=== PATIENT | female | born 1975 | race Caucasian/White ===

== ENCOUNTER 2025-03-25 07:36 | Outpatient (OUT) | payer OTHER, SELFPAY ==
--- OUTSIDE RECORDS SUMMARY | 2025-03-25 07:39 | XMS_ITS | Clinical Summary ---
Author Organization [facility] Address [address] [place] [address] Phone Care Team Providers Care Hull Molder Name Role Phone Unavailable Primary Care Provider Unavailabl e Social History Tobacco UseTypesPacks/DayYears UsedDateSmoking Tobacco: Never Assessed CommentsUnknownSex and Gender InformationValueDate RecordedSex Assigned at Not on fileLegal EgfDouxqp21/25/2022 11:32 PM ESTGender IdentityNot on file Sexual OrientationNot on file Plan of Treatment Not on file
--- OUTSIDE RECORDS SUMMARY | 2025-03-25 07:39 | XMS_ITS | Clinical Summary ---
Author Organization [facility] Address [address] [place] [address] Care Team Providers Care Head Of Drama Name Role Phone Korin Otto MD Primary Care Provider [phone] Sheila Qiu PA Unavailable [phone] Allergies Active AllergyReactionsCriticalityNoted DateCommentsAmoxicillin-Pot Clavulanate Ykerjbaom17/17/0399Ngmmavbmyf72/15/2024 Other Reaction(s): nausea and vomiting Ayirkgsjhm33/15/2024 Other Reaction(s): nausea and vomiting Medications MedicationSigDispense QuantityRefillsLast FilledStart DateEnd DateStatus Multiple Vitamin (MULTIVITAMINS PO) Take 1 tablet by mouth DailyActive fexofenadine-pseudoephedrine ER (Emily-D 24) 180-240 MG 24 hr tablet Indications:Acute non-recurrent maxillary sinusitisTake 1 tablet by mouth Daily Do not crush, chew, or split. 30 tablet 1114Active nicotine (Nicoderm CQ) 21 MG/24HR patch Indications:SmokerPlace 1 patch over 24 hours on the skin 1 (one) time each day at the same time 42 patch 5Active fluticasone (Flonase) 50 MCG/ACT nasal spray Indications:Acute non-recurrent frontal sinusitisADMINISTER 1-2 SPRAYS INTO EACH NOSTRIL DAILY AFTER USE, CLEAN TIP AND REPLACE CAP 16 mL 5Active Active Problems ProblemNoted DateDiagnosed CmfeZzxlkw10/15/2024 Resolved Problems ProblemNoted DateDiagnosed DateResolved DateAcute non-recurrent maxillary mnngkqvib78/ Assessment & Plan (03/03/2024 9:10 AM EDT): Add Probiotic to help replenish the good bacteria that are destroyed by the Antibiotics Florastor Florajen Align or try Activia in Yogurt Probiotics reduce the risk of antibiotic induced diarrhea Nsmvmkcz12 Family History Medical HistoryRelationNameCommentsHeart diseaseFatherDiabetesMotherHeart attack MotherRelationNameStatusCommentsFatherMother Social History Tobacco UseTypesPacks/DayYears UsedDateSmoking Tobacco: Every DayCigarettes Smokeless Tobacco: Never Comments:Smoking since 19 y/ o Alcohol UseStandard Drinks/WeekCommentsYes0 (1 standard drink = 0.6 oz pure alcohol)AUDIT-CAnswerDate RecordedQ1: How often do you have a drink containing alcohol?Monthly or less09/09/2023Q2: How many drinks containing alcohol do you have on a typical day when you are drinking?1 or Q3: How often do you have six or more drinks on one occasion?Never09/09/2023HQ-2AnswerDate Recorded Patient Health Questionnaire-2 Hrkxh642CommentsUnknownSex and Gender InformationValueDate RecordedSex Assigned at BirthNot on fileLegal Sex Tmqqec5908/08/2022 7:26 PM EDTGender IdentityNot on fileSexual OrientationNot on file Last Filed Vital Signs Vital SignReadingTime TakenCommentsBlood Eevedzxk436/8405 11:39 AM EDT Ggkwb917110/20/2024 11:39 AM HXXIvnwsazskht02.8 ??C (98.2 ??F)10/20/2024 11:39 AM EDTRespiratory Edaq971310/20/2024 11:39 AM EDTOxygen Maepoazfmm98%10/20/2024 11:39 AM EDTInhaled Oxygen Concentration--Vuuhuh959 kg (245 lb 3.2 oz)10/20/2024 11:39 AM KOBYdnbvu640.9 cm (6')10/20/2024 11:39 AM EDTBody Mass Index33.26010/20/2024 11:39 AM EDT Plan of Treatment Health MaintenanceDue DateLast DoneCommentsCT Cdllrhegffrj1977Colonoscopy 1977Colorectal Cancer Hoeiuyukj1977FIT-DNA1977FIT1977 FOBT1977 3748Kpcobtjiykebw1977Pap Smear1998Cervical Cancer Qdiedmyjy27/21/2007HPV/Kygxfh9105/16/20072367Vlgtxytqk66/21/2017Influenza Vaccine (#1) 2025 Insurance Care Teams Team MemberRelationshipSpecialtyStart DateEnd Date Korin Otto MD [address] [facility] [address] [place] [address] PCP - GeneralFamily Medicine10/02/22 Sheila Qiu PA [address] [facility] [address] [place] [address] PCP - Medical [place] [employer]05/27/2411
--- NOTE | 2025-03-25 09:34 | XR_ITS ---
The [address] [address] Patient Name: FELECIA PARK MRN: [id number] date: 1975 Sex: F Assigned Patient Location: [facility] Current Patient Location: [facility] Accession/Order Number: [id number] Exam Date: 03/25/2025 09:29 Report Date: 03/25/2025 09:45 At the request of: MARILYN KAYE DO Procedure: XR hip RT 1V w/ pelvis Right hip 2 views with one view pelvis. Next Reason for exam: Right hip pain. COMPARISON: None. FINDINGS: No acute bony process is seen. Moderate degenerative changes involving the hips with cystic changes involving the right acetabulum. Additional degenerative changes are noted involving the SI joints and pubic symphysis. IUD is in place. XR/XR hip RT 1V w/ pelvis IMPRESSION:Moderate degenerative changes of the hips without acute bony process. Impression dictated by: Jesus Potter Jr., DEarnestineOEarnestine 03/25/2025 9:45 AM Dictation Location: [place] [address] Electronically authenticated by: [id number] Y Date: 03/25/2025 09:45
== END 2025-03-25 07:37 | disposition home or self-care (01) ==
PROVIDERS: PCP Family Medicine; Visit Provider Physician Assistant
DX: M25.551 Pain in right hip (principal)
CPT/HCPCS: 73501